=== PATIENT | female | born 2000 | race Caucasian/White ===

== ENCOUNTER 2019-02-11 16:03 | Observation (INO) | payer OTHER ==
[~2019-02-11] VITALS: Ht 160 cm; Wt 56.7 kg
[~2019-02-11 16:03] MED LIST: DEPAKOTE250 MG PO; ESKALITH300 MG; LEXAPRO20 MG; MEDROLDOSEPACK PO; RISPERDAL0.5 MG; TRAZODONE 150150 M1; TRILEPTAL150 MG PO; ZOLOFT100 MG PO
[2019-02-11 16:14] VITALS: BP 131/76
[2019-02-11 16:26] LABS: URINE BILIRUBIN NEGATIVE (Negative); URINE BLOOD 3+ (Negative); URINE CLARITY CLEAR; URINE COLOR YELLOW; URINE GLUCOSE-RANDOM NEGATIVE (Negative); URINE KETONES NEGATIVE (Negative); URINE LEUKOCYTES-REFLEX NEGATIVE (Negative); URINE NITRITE-REFLEX NEGATIVE (Negative); URINE PROTEIN NEGATIVE (Negative); URINE SPECIFIC GRAVITY 1.025 (1.005-1.030); URINE UROBILINOGEN 0.2 E.U./dl (0.2-1.0)
[2019-02-11 16:35] LABS: ABSOLUTE BASOPHILS 0.1 thou/uL (0.0-0.2); ABSOLUTE EOSINOPHILS 0.3 thou/uL (0.0-0.7); ABSOLUTE LYMPHOCYTES 1.3 thou/uL (0.8-5.3); ABSOLUTE MONOCYTES 0.5 thou/uL (0.0-1.2); ABSOLUTE NEUTROPHILS 8.2 thou/uL (1.6-8.1); BASOPHILS 0.5 %; EOSINOPHILS 3.1 %; HEMATOCRIT 41.9 % (37.0-47.0); HEMOGLOBIN 14.2 gm/dL (12.0-15.0); LYMPHOCYTES 12.4 %; MCH 29.8 pg (26.0-34.0); MCHC 33.8 g/dL (28.0-37.0); MCV 88.1 fL (80.0-100.0); MONOCYTES 5.1 %; MPV 8.9 fl. (7.2-11.1); NUCLEATED RBCS 0 /100WBC; PLATELET COUNT* 228 thou/uL (150-400); POLYS 78.9 %; RBC 4.75 mil/uL (4.20-5.00); RDW-CV 12.7 % (10.5-14.5); WBC 10.3 thou/uL (4.0-11.0)
[2019-02-11 16:45] LABS: MUCUS 4-6 Moderate strn/LPF (None Seen); SQUAMOUS >10 Many /LPF (0-3)
[2019-02-11 16:46] LABS: BACTERIA-REFLEX 1-9 Few /HPF (None Seen); CASTS None Seen /LPF (None Seen); CRYSTALS None Seen /LPF (None Seen); URINE WBC-REFLEX 0-5 Rare /HPF (0-5)
[2019-02-11 16:47] LABS: URINE RBC 3-10 Few /HPF (0-2)
[2019-02-11 16:50] LABS: CALCIUM 8.7 mg/dL (8.5-10.1); CREATININE 0.8 mg/dL (0.6-1.3); POTASSIUM 3.8 mmol/L (3.5-5.1)
[2019-02-11 16:54] LABS: ALBUMIN 3.8 g/dL (3.4-5.0); TOTAL BILIRUBIN 0.4 mg/dL (<0.1-1.0); TOTAL PROTEIN 6.6 g/dL (6.4-8.2)
--- NOTE | 2019-02-11 19:18 | NUR ---
NURSE WAS NOTIFIED PATIENT IS GOING TO SURGERY AT 194. NURSE NOTIFIED PATIENT AND PRE OP CHECKLIST HAS BEEN COMPLETED.
[2019-02-11 20:00] VITALS: BP 114/66
[2019-02-11] MEDS ORDERED: NORCO 5-325 TA1 EAC1 PO (21:41)
[2019-02-11 22:15] VITALS: BP 114/75
[2019-02-12] VITALS: BP 106/61
[2019-02-12 04:00] VITALS: BP 93/54
--- NOTE | 2019-02-12 05:19 | NUR ---
PATIENT ADMITTED TO ROOM 109 FROM PACU AT APPROXIMATELY 2220. VSS ON RA. PATIENT ALERT AND AWAKE AND ANSWERING QUESTIONS APPROPRIATELY. FAMILY HERE WITH PATIENT. PAIN MEDICATION GIVEN IN PACU. PATIENT AND FAMILY ORIENTED TO ROOM AND POLICIES. FALL EDUCATION GIVEN AND FALL AGREEMENT SIGNED. IV IN RIGHT AC- NS @ 100ML/HR STARTED. ADMISSION ASSESSMENT CHARTED. LAP SITES X 3 ARE WELL APPROXIMATED WITH SURGICAL GLUE. PATIENT HAS EATEN CRACKERS AND BROTH AND HANDLED IT WELL. PATIENT AMBULATING TO THE BATHROOM AND IS STEADY. PATIENT INSTRUCTED TO USE CALL LIGHT WHEN NEEDING ASSISTANCE. HOURLY ROUNDS MADE. WILL CONTINUE WITH PLAN OF CARE AND NURSING TO MONITOR.
[2019-02-12 07:30] VITALS: BP 117/76
[2019-02-12 09:29] VITALS: BP 117/76
--- NOTE | 2019-02-12 10:59 | EKG ---
[place] [address] ELECTROCARDIOGRAM REPORT Name: SAEID OCONNOR Room: [address] M.R.#: [id number] Admission: 02/11/19 Attend Phys: Lakshmi Trejo DO Discharge: Date of : [birth year] Report #: [id number] THIS REPORT FOR: //name// [facility] ED Test Date: 2019-02-11 Test Time: 19:37:06 Pat Name: SAEID OCONNOR Department: Room: [facility] Gender: F Command And Control Specialist: [place] : 2000 Requested By: Angelo Santos Order Number: [id number] MD: Ananda Alegria Measurements Intervals [place] Rate: 61 P: 77 IA: 169 QRS: 66 QRSD: 92 T: 62 QT: 432 QTc: 435 Interpretive Statements Sinus rhythm Compared to ECG 04/15/2014 17:15:15 Sinus tachycardia no longer present Electronically Signed On 02-12-2019 10:59:42 CDT by Ananda Alegria [email or web address] <ELECTRONICALLY SIGNED> By: Ananda Alegria MD, [facility] 02/12/19 1059 36 36 An[facility]legria MD, [facility] /EPI
--- NOTE | 2019-02-12 12:53 | NUR ---
Nutrition: Consult received for "routine." Pt had appy. Tolerating po now. Should discharge soon. Wt: 125#. Regular diet. Albumin 3.8. RX noted. Low nutrition risk.
--- NOTE | 2019-02-12 14:08 | NUR ---
ASSUMED CARE OF PATIENT AT APPROX 0730. ALERT AND ORIENTED X4. ASSESSMENT COMPLETED AND CHARTED. VSS ON ROOM AIR. FLUIDS INFUSED ORDERED THEN SALINE LOCKED. PAIN MANAGED WITH ORAL AND IV MEDICATION, ADEQUATELY CONTROLLED WITH ORAL BEFORE DISCHARGE. PATIENT DISCHARGED AT 1321 WITH ALL PERSONAL BELONGINGS, PRESCRIPTIONS AND DISCHARGE INFORMATION.
--- NOTE | 2019-02-13 13:47 | OP ---
[address] [address] OPERATIVE REPORT Name: SAEID OCONNOR Room: [address] Naomi Brooks#: [id number] Admission: 02/11/19 Attend Phys: Lakshmi Trejo DO Discharge: 02/12/19 Date of : [birth year] Report #: [id number] THIS REPORT FOR: //name// CC: Lakshmi LIM physician/PCP DATE OF SERVICE: 02/11/2019 PREOPERATIVE DIAGNOSES: 1. Acute appendicitis. 2. Small bowel intussusception. POSTOPERATIVE DIAGNOSES: 1. Acute appendicitis. 2. Small bowel intussusception x 3. PROCEDURE: 1. Diagnostic laparoscopy. 2. Laparoscopic appendectomy. 3. Laparoscopic reduction of small bowel intussusception x 3. SURGEON: Lakshmi Trejo DO ANESTHESIA: General endotracheal. SPECIMEN: Appendix. INTRAOPERATIVE FINDINGS: Acutely inflamed appendix, which was in the retrocecal position with peritoneal attachments. A small bowel intussusception x 3, approximately 40 cm from the ligament of Treitz, which were reduced easily. COMPLICATIONS: None. ESTIMATED BLOOD LOSS: 25 mL. INDICATIONS FOR PROCEDURE: The patient is a 18-year-old female who presented to the Emergency Department with acute onset of right lower quadrant pain. The patient was seen and examined. CT imaging demonstrated normal appearing appendix with a left lower quadrant intussusception. On exam, the patient had clinical appendicitis with pain in the right lower quadrant with positive Rovsing sign. The patient denied any left lower quadrant tenderness on exam. The patient was explained the procedure including risks, benefits and alternatives. All questions were answered to the patient's satisfaction. Informed consent was obtained. DESCRIPTION OF PROCEDURE: The patient was brought [place] [address] OPERATIVE REPORT Name: ELVINASEID Room: [address] Naomi Brooks#: [id number] Admission: 02/11/19 Attend Phys: Lakshmi Trejo DO Discharge: 02/12/19 Date of : [birth year] Report #: [id number] and placed in supine position. General anesthesia was induced. SCDs were placed on bilateral lower extremities and prophylactic antibiotics were administered. Next, after a timeout was performed, the abdomen was accessed via an infraumbilical Emily trocar. The abdomen was insufflated to 15 mm of CO2. Next, under direct visualization, two 5 mm trocars were placed in the left lower quadrant and in suprapubic region. The abdomen was inspected. There was no injury to underlying structures upon placement of trocars. The cecum was identified. The terminal ileum was noted to have some peritoneal adhesions to the right pelvic sidewall. The cecum was then identified and the appendix was noted to be retrocecal with several adhesions to the right pelvic sidewall in the posterior abdominal wall and was noted to be in a retrocecal position. These adhesions were taken down with the hook Bovie cautery. Once the appendix was straightened out, it was noted to be mildly inflamed and was noted to be nonperforated. At this time, a [place] dissector was used to create a window in the mesoappendix and using a goodideazs endoscopic staple load, a purple staple load was used to transect the bowel and a white staple load was used to transect the mesoappendix. The appendix was then placed within an EndoCatch bag and brought out through the umbilical trocar site. The staple lines were inspected. There was noted to be some bleeding from the mesoappendix, which was controlled with hook cautery. Next, the small bowel was run from the terminal ileum to the ligament of Treitz. There was no noted intussusception in the left lower quadrant as visualized on the CAT scan. However, approximately 40-45 cm distal to the ligament of Treitz, there was noted to be 3 separate small bowel intussusceptions. These were all easily reduced. There was no palpable mass within the lumen of the small intestine nor was there lymphadenopathy visualized within her mesentery. The mesentery was quite thin as well. The omentum was easily translucent through it due to the lack of intraperitoneal fat. At this time, as there were 3 areas intussusception and the previously imaged left lower quadrant intussusception was no longer visualized, I did not feel a small bowel resection was warranted at this time as I stated the small bowel did appear normal and there was no lymphadenopathy or masses identified. At this time, I did inspect the staple lines, did place a piece of Surgicel over the cecum and mesoappendix. The ovaries were inspected bilateral and were noted to be normal in appearance. The 5 mm trocars were removed under direct visualization noting excellent hemostasis at the anterior abdominal wall. The Emily was removed. The abdomen was desufflated. The umbilical fascia was then closed with an 0 Vicryl [id number] stitch. Local anesthetic was infiltrated in all surgical sites and the incisions were closed with 4-0 Monocryl in a subcuticular manner and skin glue was applied for sterile dressing. All sponge, and instrument count was reported as correct at the end of the case. The patient tolerated the procedure well without any complications. She was awakened from anesthesia in [place] [address] OPERATIVE REPORT Name: SAEID OCONNOR Room: [address] Naomi Brooks#: [id number] Admission: 02/11/19 Attend Phys: Lakshmi Trejo DO Discharge: 02/12/19 Date of : [birth year] Report #: [id number] the Operating Room and taken to the PACU in stable condition for further recovery. <ELECTRONICALLY SIGNED> By: Lakshmi Trejo DO 02/13/19 1347 [id number] [id number] Trejo DO /nt
== END 2019-02-12 13:21 | disposition home or self-care (01) ==
LOC: M.ERS 16:03 → M.TBA-ER 18:50 → M.ORTHSURG 18:50
PROVIDERS: Physician Assistant; ADMIT Surgery
DX: K35.80 Unspecified acute appendicitis (principal); K56.1 Intussusception; F32.9 Major depressive disorder, single episode, unspecified; F17.210 Nicotine dependence, cigarettes, uncomplicated

== ENCOUNTER 2019-12-28 16:14 | Emergency (ER) | payer OTHER ==
[~2019-12-28] VITALS: Ht 167.6 cm; Wt 57.1 kg
[~2019-12-28 16:14] MED LIST changes: +NORCO 5-325 TA1 EAC1 PO
[2019-12-28] MEDS ORDERED: VALTREX1000 MG PO (16:27)
[2019-12-28] MEDS ORDERED: BUSPIRONE HCL10 MG PO (16:27)
[2019-12-28 16:42] LABS: URINE BILIRUBIN NEGATIVE (Negative); URINE BLOOD 3+ (Negative); URINE CLARITY CLEAR; URINE COLOR YELLOW; URINE GLUCOSE-RANDOM NEGATIVE (Negative); URINE KETONES NEGATIVE (Negative); URINE LEUKOCYTES-REFLEX NEGATIVE (Negative); URINE NITRITE-REFLEX NEGATIVE (Negative); URINE PROTEIN NEGATIVE (Negative); URINE SPECIFIC GRAVITY 1.015 (1.005-1.030); URINE UROBILINOGEN 0.2 E.U./dl (0.2-1.0)
[2019-12-28 16:50] LABS: BACTERIA-REFLEX None Seen /HPF (None Seen); CASTS None Seen /LPF (None Seen); CRYSTALS None Seen /LPF (None Seen); MUCUS 0-3 Light strn/LPF (None Seen); SQUAMOUS >10 Many /LPF (0-3); URINE RBC 0-2 Rare /HPF (0-2); URINE WBC-REFLEX None Seen /HPF (0-5)
[2019-12-28 17:01] LABS: ABSOLUTE EOSINOPHILS 0.2 thou/uL (0.0-0.7); ABSOLUTE LYMPHOCYTES 1.9 thou/uL (0.8-5.3); ABSOLUTE MONOCYTES 0.6 thou/uL (0.0-1.2); ABSOLUTE NEUTROPHILS 3.6 thou/uL (1.6-8.1); BASOPHILS 0.7 %; EOSINOPHILS 3.9 %; HEMATOCRIT 42.6 % (37.0-47.0); HEMOGLOBIN 14.9 gm/dL (12.0-15.0); MCHC 34.9 g/dL (28.0-37.0); MCV 91.7 fL (80.0-100.0); MONOCYTES 9.6 %; MPV 8.8 fl. (7.2-11.1); NUCLEATED RBCS 0 /100WBC; PLATELET COUNT* 222 thou/uL (150-400); POLYS 56.8 %; RBC 4.65 mil/uL (4.20-5.00); WBC 6.4 thou/uL (4.0-11.0)
[2019-12-28 17:08] LABS: CALCIUM 8.4 mg/dL (8.5-10.1); CREATININE 0.8 mg/dL (0.6-1.3)
[2019-12-28 17:10] LABS: PROTIME 10.7 Seconds (9.20-11.50)
[2019-12-28 17:12] LABS: ALBUMIN 3.8 g/dL (3.4-5.0); TOTAL BILIRUBIN 0.5 mg/dL (<0.1-1.0); TOTAL PROTEIN 6.5 g/dL (6.4-8.2)
[2019-12-28 17:50] VITALS: BP 97/71
[2019-12-28] MEDS ORDERED: IBUPROFEN 800800 M1 PO (17:50)
== END 2019-12-28 17:50 | disposition home or self-care (01) ==
LOC: M.ERS 16:14
PROVIDERS: Physician Assistant
DX: N93.8 Other specified abnormal uterine and vaginal bleeding (principal); R10.31 Right lower quadrant pain; F17.210 Nicotine dependence, cigarettes, uncomplicated